=== PATIENT | male | born 1980 | race Caucasian/White ===

== ENCOUNTER 2017-04-24 23:47 | Emergency (ER) | payer BC ==
[~2017-04-24] VITALS: Ht 182.9 cm; Wt 77.1 kg
[~2017-04-24 23:47] MED LIST: LOR5 PO; NO ROUTINE MEDS; ONDA4TAB PO; PER PO
--- NOTE | 2017-04-24 23:53 | ER Report ---
History and Physical Time Seen By MD: 23:52 HPI/ROS CHIEF COMPLAINT: Urinary HISTORY OF PRESENT ILLNESS: 37-year-old male presents ambulatory to the ER complaining of injury to his right great toe several hours ago. Patient was horsing around with his daughter when he slammed his foot into a doorjamb. The medial aspect of his right great toe is grossly ecchymotic and swollen. Patient is able to ambulate but it is extremely painful when he puts weight on his toe. Patient denies any other injuries. He's taken ibuprofen at home with some pain improvement of his pain. Allergies: Coded Allergies: amoxicillin (Verified Allergy, Intermediate, RIGHT EYE SWELLING, 04/24/17) Home Meds Active Scripts Oxycodone Hcl/Acetaminophen (PERCOCET 5-325 MG TABLET) 1 Each Tablet, 1 EACH PO Q4-6H Y for PAIN, #10 Prov:BEKADELVIN Rebecca DO 04/25/17 Discontinued Scripts Ondansetron (ZOFRAN ODT) 4 Mg Tab.rapdis, 4 MG PO Q6H, #10 TAB TAKE 1 TABLET BY MOUTH EVERY 6 HOURS Prov:ADELINA JOHNSON DIET COUNSELOR 11/14/15 Oxycodone/Acetaminophen (OXYCODONE/ACETAMINOPHEN 5MG/325 MG) 5 Mg/325 Mg Tab, 1- 2 TAB PO Q6H, #10 TAB Prov:ADELINA JOHNSON DIET COUNSELOR 11/14/15 Reviewed Nurses Notes: Yes Old Medical Records Reviewed: Yes Hx Smoking: Yes Smoking Status: Current: Every Day Smoker Hx Substance Use Disorder: No Hx Alcohol Use: No Constitutional Vital Sign - Last 24 Hours 04/24/17 04/25/17 23:54 00:30 Temp 99.0 Pulse 85 83 Resp 14 B/P (MAP) 146/98 131/95 (107) Pulse Ox 95 92 O2 Delivery Room Air Room Air Physical Exam General appearance: Alert no distress. Respiratory: Chest is non tender, lungs are clear to auscultation. Cardiac: Regular rate and rhythm Extremities: Examination of the right lower extremity reveals a neurovascularly intact foot. There is ecchymosis of the medial axis of the right great toe. The nails intact. Patient has significantly decreased range of motion. The ankle is unremarkable on palpation. The forefoot is unremarkable on palpation and compression. DIFFERENTIAL DIAGNOSIS: After history and physical exam differential diagnosis was considered for sprain, strain, fracture, dislocation, contusion Medical Decision Making EKG/Imaging Imaging X-ray: Right great toe, 3 views was obtained. I viewed the images myself on the PACS system. My interpretation of the images is: No fracture no dislocation or malalignment. The radiologist interpretation had no clinically significant variation from this interpretation. ED Course/Re-evaluation ED Course Patient was admitted to an examination room. H&P was done. The dental diagnoses was considered. On conical examination. Patient has a grossly swollen toe. There is significant decreased range of motion. Diagnostic x- rays are performed. Patient's advised to conservative treatment plan. He is advised ibuprofen 600 mg 3 times daily with food. A limited supply of Percocet were provided for temporary pain relief. Patient advised to follow-up with primary care if unimproved in 3-5 days. Decision to Disposition Date: Apr 25, 2017 Decision to Disposition Time: 00:25 Depart Departure Latest Vital Signs Vital Signs Date Time Temp Pulse Resp B/P (MAP) Pulse Ox O2 Delivery O2 Flow Rate FiO2 04/25/17 00:30 83 131/95 (107) 92 Room Air 04/24/17 23:54 99.0 14 Impression: Primary Impression: Contusion of great toe Additional Impression: Sprain of great toe Condition: Improved Disposition: HOME OR SELF-CARE New Scripts Oxycodone Hcl/Acetaminophen (PERCOCET 5-325 MG TABLET) 1 Each Tablet 1 EACH PO Q4-6H Y for PAIN, #10 Prov: DELVIN IRELAND DO 04/25/17 Patient Instructions: Contusion in Adults (ED) Additional Instructions: Take ibuprofen 200 mg 3-4 tablets 3 times a day with food Elevate and apply ice Follow-up with your primary doctor if unimproved in 3-5 days Problem Qualifiers Primary Impression: Contusion of great toe Encounter type: initial encounter Damage to nail status: without damage Laterality: right Qualified Codes: S90.111A - Contusion of right great toe without damage to nail, initial encounter Additional Impression: Sprain of great toe Encounter type: initial encounter Laterality: right Qualified Codes: S93.501A - Unspecified sprain of right great toe, initial encounter DELVIN IRELAND DO Apr 24, 2017 23:53
--- NOTE | 2017-04-25 00:25 | RADIOLOGY IMAGING REPORT ---
FACILITY: [facility] PATIENT NAME: Andres Quintanilla : 1980 MR: [id number] V: [id number] EXAM DATE: ORDERING PHYSICIAN: DELVIN IRELAND TECHNOLOGIST: Location: [facility] Patient: Andres Quintanilla : 1980 Visit/Account:[id number] Date of Sevice: 04/24/2017 INDICATION: Crush injury to right great toe. EXAM DATE: 04/24/2017 11:56 PM COMPARISON: None. FINDINGS: 3 views right great toe. Mineralization is normal. No acute alignment abnormality or fracture. Media l sesamoid at the 1st metatarsophalangeal joint is bipartite. Soft tissues are unremarkable. IMPRESSION: Normal right great toe. Report Dictated By: Damian Zamora MD at 04/25/2017 12:19 AM Report E-Signed By: Damian Zamora MD at 04/25/2017 12:21 AM WSN:[id number]
[2017-04-25] MEDS ORDERED: OXYC-865 PO (00:29)
[2017-04-25 00:30] VITALS: BP 131/95
[2017-04-25] MEDS ORDERED: oxyCODONE/ACETAMIN 5/325MG TH 2 TAB/BOTTLE PO ONE (00:30)
== END 2017-04-25 00:33 | disposition home or self-care (01) ==
LOC: ER 23:50
DX: S90.111A Contusion of right great toe without damage to nail, initial encounter (principal); S93.501A Unspecified sprain of right great toe, initial encounter; Y93.83 Activity, rough housing and horseplay
CPT/HCPCS: 99282

== ENCOUNTER 2018-05-10 12:58 | Emergency (ER) | payer BC ==
[~2018-05-10 12:58] MED LIST changes: +OXYC-865 PO
--- NOTE | 2018-05-10 13:01 | ER Report ---
History and Physical Time Seen By MD: 13:00 HPI/ROS CHIEF COMPLAINT: Lumbar back pain with bilateral radiation HISTORY OF PRESENT ILLNESS: Patient is a 38-year-old male here with complaints of mid lower lumbar back pain with radiation bilaterally not extending into the lower extremities with no musculoskeletal weakness, bowel or bladder incontinence. Patient has had several episodes of similar pain which was relieved by ibuprofen and Tylenol. Patient reports having a popping sensation in his back shortly prior to arrival with subsequent muscle spasm. REVIEW OF SYSTEMS: Constitutional: No fever, no chills. Eyes: No discharge. ENT: No sore throat. Cardiovascular: No chest pain, no palpitations. Respiratory: No cough, no shortness of breath. Gastrointestinal: No abdominal pain, no vomiting. Genitourinary: No hematuria. Musculoskeletal: Low mid lumbar back pain on palpation with no obvious bony injury or step offs Skin: No rashes. Neurological: Patient is neurovascularly intact in the distal lower extremities Allergies: Coded Allergies: amoxicillin (Verified Allergy, Intermediate, RIGHT EYE SWELLING, 05/10/18) Home Meds Active Scripts Cyclobenzaprine Hcl (CYCLOBENZAPRINE HCL) 10 Mg Tablet, 10 MG PO Q8H PRN for MUSCLE SPASMS, #20 TAB 0 Refills Prov:VICTOR M NUNEZ DO 05/10/18 Tramadol Hcl (TRAMADOL HCL) 50 Mg Tablet, 50 MG PO Q6H PRN for PAIN, #12 TAB 0 Refills Prov:VICTOR M NUNEZ DO 05/10/18 Discontinued Scripts Oxycodone Hcl/Acetaminophen (PERCOCET 5-325 MG TABLET) 1 Each Tablet, 1 EACH PO Q4-6H PRN for PAIN, #10 Prov:DELVIN IRELAND DO 04/25/17 Hx Smoking: Yes Smoking Status: Current: Every Day Smoker Hx Substance Use Disorder: No Hx Alcohol Use: No Constitutional Vital Sign - Last 24 Hours 05/10/18 05/10/18 05/10/18 05/10/18 13:04 13:05 13:28 13:30 Temp 98.3 Pulse 68 68 Resp 16 B/P (MAP) 109/70 (83) 109/70 104/70 (81) Pulse Ox 97 95 O2 Delivery Room Air 05/10/18 05/10/18 05/10/18 05/10/18 13:35 13:40 14:10 14:22 Pulse 72 74 66 B/P (MAP) 117/83 (94) Pulse Ox 93 95 94 05/10/18 14:30 B/P (MAP) 116/86 (96) Physical Exam General Appearance: The patient is alert, has no immediate need for airway protection and no signs of toxicity. No acute distress Eyes: Pupils equal and round no pallor or injection. ENT, Mouth: Mucous membranes are moist. Respiratory: There are no retractions, lungs are clear to auscultation. Cardiovascular: Regular rate and rhythm. [ ] Gastrointestinal: Abdomen is soft and non tender, no masses, bowel sounds normal. Neurological: No focal neurological findings on exam Skin: Warm and dry, no rashes. Musculoskeletal: Neck is supple non tender. There is moderate tenderness on palpation of the lumbar paraspinal musculature with no bony step offs on palpation of the midline lumbar spine Extremities are nontender, nonswollen and have full range of motion. [ ] DIFFERENTIAL DIAGNOSIS: After history and physical exam differential diagnosis was considered for musculoskeletal spasm, sprain, disc herniation Medical Decision Making EKG/Imaging Imaging Location: [facility] [place] Patient: Andres Quintanilla : 1980 Visit/Account:[id number] Date of : 05/10/2018 EXAMINATION: Lumbar Spine 3 views HISTORY: Mid lumbar back pain. COMPARISON: None. FINDINGS: There are 5 lumbar-type vertebral segments. No radiographic evidence of acute fracture or subluxation in the lumbar spine. Normal alignment. Vertebral body height and disc spaces are preserved. IMPRESSION: Unremarkable lumbar spine series. ED Course/Re-evaluation ED Course Patient is a 38-year-old male here with complaints of low mid lumbar back pain. Patient was given Valium, tramadol, Toradol with significant relief of symptoms. X-ray showed no bony abnormalities. Outpatient analgesic prescription provided. Patient was advised to follow-up with his PCP. Return precautions provided. Decision to Disposition Date: May 10, 2018 Decision to Disposition Time: 14:26 Depart Departure Latest Vital Signs Vital Signs Date Time Temp Pulse Resp B/P (MAP) Pulse Ox O2 Delivery O2 Flow Rate FiO2 05/10/18 14:30 116/86 (96) 05/10/18 14:10 66 94 05/10/18 13:05 98.3 16 Room Air Impression: Primary Impression: Low back pain Condition: Improved Disposition: HOME OR SELF-CARE New Scripts Cyclobenzaprine Hcl (CYCLOBENZAPRINE HCL) 10 Mg Tablet 10 MG PO Q8H PRN for MUSCLE SPASMS, #20 TAB 0 Refills Prov: VICTOR M NUNEZ DO 05/10/18 Tramadol Hcl (TRAMADOL HCL) 50 Mg Tablet 50 MG PO Q6H PRN for PAIN, #12 TAB 0 Refills Prov: VICTOR M NUNEZ DO 05/10/18 Patient Instructions: Musculoskeletal Pain (ED) Additional Instructions: You may take naproxen or ibuprofen as needed for primary pain control. You may take 1 tramadol every 6-8 hours as needed for breakthrough pain control. You may take 1 Flexeril every 6-8 hours as needed for relief of muscle spasm. Please follow-up with your primary care physician in 24-48 hours. Please return promptly if you develop lower extremity weakness, bowel or bladder incontinence, numbness. VICTOR M NUNEZ DO May 10, 2018 13:01
[2018-05-10] MEDS ORDERED: traMADol 50 MG TAB PO ONE (13:25)
[2018-05-10] MEDS ORDERED: DIAZEPAM 5 MG TAB PO ONE (13:25)
[2018-05-10] MEDS ORDERED: KETOROLAC 60 MG/2 ML VIAL IM ONE (13:25)
--- NOTE | 2018-05-10 14:18 | RADIOLOGY IMAGING REPORT ---
FACILITY: [facility] - [place] PATIENT NAME: Andres Quintanilla : 1980 MR: [id number] V: [id number] EXAM DATE: ORDERING PHYSICIAN: VICTOR M NUNEZ TECHNOLOGIST: Location: [facility] - [place] Patient: Andres Quintanilla : 1980 Visit/Account:[id number] Date of Sevice: 05/10/2018 EXAMINATION: Lumbar Spine 3 views HISTORY: Mid lumbar back pain. COMPARISON: None. FINDINGS: There are 5 lumbar-type vertebral segments. No radiographic evidence of acute fracture or subluxation in the lumbar spine. Normal alignment. Vertebral body height and disc spaces are preserved. IMPRESSION: Unremarkable lumbar spine series. Report Dictated By: Carson Maxwell MD at 05/10/2018 2:11 PM Report E-Signed By: Carson Maxwell MD at 05/10/2018 2:13 PM WSN:[id number]
[2018-05-10] MEDS ORDERED: CYCL10TA29 PO (14:27)
[2018-05-10] MEDS ORDERED: TRAM-420 PO (14:27)
[2018-05-10 14:30] VITALS: BP 116/86
== END 2018-05-10 14:37 | disposition home or self-care (01) ==
LOC: ER 13:04
DX: M54.5 Low back pain (principal)
CPT/HCPCS: 72100; 96372; 99283; J1885